=== PATIENT | female | born 1990 | race Caucasian/White ===

== ENCOUNTER 2019-04-07 04:26 | Inpatient (IN) | payer OTHER ==
[~2019-04-07] VITALS: Ht 157.5 cm; Wt 84.8 kg
[2019-04-07 06:21] VITALS: BP 123/86; PULSE 111; TEMP 98.8
[2019-04-07] MEDS ORDERED: SPRINTEC 35 MCG1 TAB PO (06:25)
[2019-04-07] MEDS ORDERED: FOLIC ACID 11 MG/TA1 PO (06:26)
[2019-04-07] MEDS ORDERED: LIALDA 1.2 GM1.2 GM PO (06:27)
[2019-04-07] MEDS ORDERED: PRENATAL MVI (06:28)
[2019-04-07] MEDS ORDERED: VITAMIN D32000 IU (06:29)
[2019-04-07] MEDS ORDERED: METHOTREXA2.5 MG/TAB PO (06:34)
[2019-04-07] MEDS ORDERED: HUMIRA40 MG/0.3 SQ (06:36)
[2019-04-07] MEDS ORDERED: ZOFRAN 4MG T4 MG/TAB PO (06:38)
[2019-04-07] MEDS ORDERED: PHENERGAN 25 TA25 MG PO (06:40)
--- NOTE | 2019-04-07 07:00 | NUR ---
Bedside shift report received from TAMIA Castrejon. PT in bed resting with eyes closed, denies needs, hat in toilet, will continue to monitor.
[2019-04-07 07:44] LABS: HEMATOCRIT 44.9 % (37.0-47.0); HEMOGLOBIN 14.9 g/dl (12.5-16.0); MEAN CELL VOLUME 89 fl (80.0-100.0); MEAN CORPUSCULAR HEMOGLOBIN 30 pg (27.0-31.0); MEAN CORPUSCULAR HGB CONC 33 g/dl (33.0-37.0); MEAN PLATELET VOLUME 9.7 fl (7.4-10.4); PLATELET COUNT 309 K/mm3 (130-400); RED BLOOD COUNT 5.02 M/mm3 (4.10-5.30); REDCELL DISTRIBUTION WIDTH-CV 15.1 % (11.5-14.5)
[2019-04-07 07:51] VITALS: BP 131/78; BP 135/71; PULSE 102; PULSE 71; TEMP 98.5; TEMP 99.4
[2019-04-07 07:56] LABS: ALBUMIN 3.8 gm/dL (3.5-5.0); BILIRUBIN,TOTAL 1.6 mg/dL (0.0-1.0); CALCIUM 8.7 mg/dL (8.4-10.2); CREATININE, serum 0.97 (0.52-1.25); POTASSIUM 3.7 mmol/L (3.4-5.0); TOTAL PROTEIN 6.9 gm/dL (6.4-8.2)
[2019-04-07] MEDS ORDERED: ENTOCORT EC3 MG PO (08:26)
[2019-04-07] MEDS ORDERED: MAXALT10 MG PO (08:27)
[2019-04-07] MEDS ORDERED: PREDNISONE 5MG5 MG PO (08:28)
--- NOTE | 2019-04-07 08:36 | NUR ---
Assessment charted. Pt resting in bed quietly, states pain is 4/10 to abdomen with cramping pain. IVF to GINA, INT to R a/c. REsting well, HR tachycardic, reviewed WBC count on labs. Pt denies needs, NPO until seen, will continue to monitor.
[2019-04-07 08:39] LABS: BAND 10 % (0-10); EOSINOPHIL 3 % (0-4); LYMPHOCYTE 14 % (20.0-51.0); NEUTROPHILS 64 % (42.0-75.2); PLATELET ESTIMATE NORMAL (NORMAL)
--- NOTE | 2019-04-07 10:05 | NUR ---
Pt c/o of cramping, slicing pain to abdomen rated at 4-5/10. PRN dilaudid given.
[2019-04-07 11:18] VITALS: BP 126/80; PULSE 98; TEMP 98.4
[2019-04-07] MEDS ORDERED: BENTYL 10MG10 MG/CAP PO (11:42)
--- NOTE | 2019-04-07 13:54 | NUR ---
Bomb Loader met with patient to complete initial intake and discuss discharge planning. Patient moved to [place] with her , Vladimir (ph#[phone]) yesterday. Patient states Vladimir is in the and they bought a home here in [place]. Patient plans to establish primary care and medications through [facility]. Patient is independent with ADLS and does not have DME. Patient does not have Advance Directives and is not interested in setting up at this time. Patient plans to return home upon discharge with Vladimir providing transportation.
[2019-04-07 16:38] VITALS: BP 114/75; PULSE 88; TEMP 98.2
--- NOTE | 2019-04-07 17:52 | NUR ---
Pt remains in bed, resting quietly, tolerating small amount of PO. PRN pain meds provided per request. IVF continues. Pt has had one stool that is positibe for Cdiff, now on contact precautions. Darien needs, will give bedsdie shift report to [facility] nurse who will resume care.
[2019-04-07 20:38] VITALS: BP 125/79; PULSE 83; TEMP 98.1
[2019-04-07 23:50] VITALS: BP 135/79; PULSE 82; TEMP 97.8
[2019-04-08 05:26] VITALS: BP 137/83; PULSE 87; TEMP 98.2
[2019-04-08 05:52] LABS: HEMATOCRIT 38.5 % (37.0-47.0); MEAN CELL VOLUME 89 fl (80.0-100.0); MEAN CORPUSCULAR HEMOGLOBIN 30 pg (27.0-31.0); MEAN CORPUSCULAR HGB CONC 34 g/dl (33.0-37.0); MEAN PLATELET VOLUME 9.9 fl (7.4-10.4); PLATELET COUNT 331 K/mm3 (130-400); RED BLOOD COUNT 4.34 M/mm3 (4.10-5.30); REDCELL DISTRIBUTION WIDTH-CV 14.5 % (11.5-14.5)
[2019-04-08 06:00] LABS: ALBUMIN 3.2 gm/dL (3.5-5.0); BILIRUBIN,TOTAL 0.7 mg/dL (0.0-1.0); CALCIUM 8.6 mg/dL (8.4-10.2); CREATININE, serum 0.67 (0.52-1.25); MAGNESIUM 2.1 mg/dL (1.6-2.3); TOTAL PROTEIN 6.1 gm/dL (6.4-8.2)
[2019-04-08 06:17] LABS: HEMOGLOBIN 12.9 g/dl (12.5-16.0)
[2019-04-08 07:28] VITALS: BP 115/74; PULSE 65; TEMP 98.1
[2019-04-08 11:26] VITALS: BP 119/79; PULSE 93; TEMP 98.4
[2019-04-08 13:10] LABS: BAND 6 % (0-10); LYMPHOCYTE 4 % (20.0-51.0); NEUTROPHILS 89 % (42.0-75.2)
[2019-04-08 13:11] LABS: PLATELET ESTIMATE NORMAL (NORMAL)
[2019-04-08 18:08] VITALS: BP 127/84; PULSE 87; TEMP 98.6
[2019-04-08 19:47] VITALS: BP 141/86; PULSE 87; TEMP 98.6
--- NOTE | 2019-04-08 20:30 | NUR ---
Assessment complete. Patient states 6/10 pain in abdomen. Prn pain medication given per pt request. Abdomen soft, but tender. Patient states she is having some nausea. Antiemetic given. Denies further needs at this time. Will continue to monitor.
--- NOTE | 2019-04-08 23:00 | NUR ---
Patient ambulating to BR independently. States, abd pain is 6/10. Prn IV pain medication given per request. RUE IV tender/leaking. IV removed. Pressure applied. Cath tip intact. Right FA IV flushed, patent. IVF infusing into right FA. Will continue to monitor.
[2019-04-08 23:24] VITALS: BP 140/96; PULSE 66
[2019-04-09] VITALS (7 sets, daily range): BP systolic 106–143; BP diastolic 68–93; PULSE 52–91; TEMP 97.9–98.9
--- NOTE | 2019-04-09 04:09 | NUR ---
Patient in bed, awake. States pain in ABD is 6/10. Prn pain medication given per pt request. Denies further needs at this time. Will continue to monitor.
[2019-04-09 06:12] LABS: HEMOGLOBIN 11.3 g/dl (12.5-16.0); MEAN CELL VOLUME 91 fl (80.0-100.0); MEAN CORPUSCULAR HEMOGLOBIN 29 pg (27.0-31.0); MEAN CORPUSCULAR HGB CONC 32 g/dl (33.0-37.0); MEAN PLATELET VOLUME 10.1 fl (7.4-10.4); PLATELET COUNT 275 K/mm3 (130-400); RED BLOOD COUNT 3.84 M/mm3 (4.10-5.30); REDCELL DISTRIBUTION WIDTH-CV 14.5 % (11.5-14.5)
[2019-04-09 06:25] LABS: HEMATOCRIT 35.1 % (37.0-47.0)
[2019-04-09 06:29] LABS: CALCIUM 8.4 mg/dL (8.4-10.2); CREATININE, serum 0.7 (0.52-1.25)
--- NOTE | 2019-04-09 09:13 | NUR ---
Pt stable this am and alert and oriented. Pt reports 3 episodes of diarrhea. Pt also states that breakfast bland diet may be too much too fast and requests diet to be changed to full liquid for lunch. Pt given phenergan to manage nausea after breakfast. Pt also given PRN [place] to manage pain. Pt IV patent with NS running per orders.Pt independent in the room and steady on her feet. Pt denies further needs at this time and call light in reach.
[2019-04-09 09:24] LABS: BAND 16 % (0-10); LYMPHOCYTE 2 % (20.0-51.0); NEUTROPHILS 80 % (42.0-75.2); PLATELET ESTIMATE NORMAL (NORMAL)
--- NOTE | 2019-04-09 15:27 | NUR ---
Pt alert and oriented and spouse sitting in bed with pt. Pt states pain down to 2/10 with [place] and Phenergan PRN. Pt remains on contact precautions for CDiff. Pt states that she has no nausea at this time. Pt has call light in reach and denies needs at this time.
--- NOTE | 2019-04-09 20:00 | NUR ---
Assessment complete. Pt laying in bed with at bedside. Alert and oriented. Denies pain during assessment. Denies nausea, vomiting, SOB, headahce. States to continue to have loose stools, without blood seen in stools. Pt states IV to LFA slightly painful and left arm/hand swollen. NS currently infusing. NS stopped. SOLOMON Castrejon, inspected IV site, flushed IV, pt states pain when flushing. IV to LFA discontinued. SOLOMON Castrejon started IV to RAC. Continued NS. Medications administered as ordered. Pt had own medications on hand, Humira, and self administered to left thigh. Contact precautions in place. Needs met at this time. Call light within reach.
--- NOTE | 2019-04-10 01:42 | NUR ---
Patient laying in bed with eyes open. presents with facial grimacing, grunting, and moaning. daughter at bedside. Respirations shallow and even. See EMAR for IV morphine administered. music playing at bedside. Telephone Supervisor deepakte per daughter request.
[2019-04-10 03:44] VITALS: BP 150/98; PULSE 51; TEMP 97.9
--- NOTE | 2019-04-10 05:52 | NUR ---
Pt slept throughout the night with at bedside. C/O cramping abdominal pain, rate 6/10, PRN [place] given as requested by pt, states relief. Medications given as ordered. Voices no concern at this time. Call light within reach.
[2019-04-10 05:58] LABS: BASO % 0.1 % (0.0-2.0); EOS % 0.1 % (0-4.0); GRAN # 13.8 (1.4-6.5); GRAN % 88.4 % (42.2-75.2); HEMOGLOBIN 11.8 g/dl (12.5-16.0); LYMPH # 1.2 (1.2-3.4); LYMPH % 7.7 % (20.0-51.0); MEAN CELL VOLUME 89 fl (80.0-100.0); MEAN CORPUSCULAR HEMOGLOBIN 30 pg (27.0-31.0); MEAN CORPUSCULAR HGB CONC 33 g/dl (33.0-37.0); MEAN PLATELET VOLUME 9.6 fl (7.4-10.4); MONO # 0.4 (0.1-0.6); MONO % 2.5 % (1.7-9.3); PLATELET COUNT 235 K/mm3 (130-400); RED BLOOD COUNT 3.97 M/mm3 (4.10-5.30); REDCELL DISTRIBUTION WIDTH-CV 14.5 % (11.5-14.5)
[2019-04-10 05:59] LABS: HEMATOCRIT 35.5 % (37.0-47.0)
[2019-04-10 06:05] LABS: CALCIUM 8.1 mg/dL (8.4-10.2); CREATININE, serum 0.74 (0.52-1.25); MAGNESIUM 1.9 mg/dL (1.6-2.3); PHOSPHOROUS 3.7 mg/dL (2.5-4.5)
[2019-04-10 07:43] VITALS: BP 155/91; PULSE 55; TEMP 98.1
--- NOTE | 2019-04-10 09:15 | NUR ---
Pt assessment completed and charted. Pt sitting in bed w/ at bedside. Pt denies pain, N/V, chest pain, dizziness, SOB. States she has some diarrhea, this nurse has not seen any BM. Pts breathing is even and unlabored, VSS, heart RRR, pulses strong bilaterally, good cap refill, BS X4. Pt has RAC IV w/ IVF at 75ml/hr running w/o complictions. No other concerns voiced at this time. Medications administered per MAR.
[2019-04-10 11:20] VITALS: BP 150/102; PULSE 58; TEMP 98.3
[2019-04-10] MEDS ORDERED: VANCOCIN H125 MG/CAP PO (11:22)
[2019-04-10] MEDS ORDERED: PREDNISONE10 MG PO (11:24)
[2019-04-10] MEDS ORDERED: NORCO 325 MG-51 TAB PO (11:32)
--- NOTE | 2019-04-10 15:00 | NUR ---
Pt discharge instructions discussed and reviewed w/ patient who verbalized understanding. All questions answered. RAC IV dc'd w/ catheter tip intact and no complications. Pt escorted out ambulatory w/o issue. No other concerns expressed.
== END 2019-04-10 14:45 | disposition home or self-care (01) | DRG 372 ==
LOC: MEDICAL 04:26
PROVIDERS: Hospitalist; Nurse Practitioner Family; Physician Assistant; ADMIT Internal Medicine
DX: A04.72 Enterocolitis due to Clostridium difficile, not specified as recurrent (principal); K51.918 Ulcerative colitis, unspecified with other complication; K51.20 Ulcerative (chronic) proctitis without complications; I73.00 Raynaud's syndrome without gangrene; M35.00 Sjogren syndrome, unspecified; Z86.010 Personal history of colon polyps; Z88.4 Allergy status to anesthetic agent; G43.909 Migraine, unspecified, not intractable, without status migrainosus; N80.9 Endometriosis, unspecified; E80.6 Other disorders of bilirubin metabolism
CPT/HCPCS: 99222-AI; 99231-AI; 99239; A4216; J0696; J1170; J2270; J2405; J2550; J2930; J7030

== ENCOUNTER 2019-08-10 13:00 | Outpatient (RCR) | payer OTHER ==
[2019-06-29 13:39] LABS: HEMATOCRIT 40.3 % (37.0-47.0); HEMOGLOBIN 13.5 g/dl (12.5-16.0); MEAN CELL VOLUME 91 fl (80.0-100.0); MEAN CORPUSCULAR HEMOGLOBIN 30 pg (27.0-31.0); MEAN CORPUSCULAR HGB CONC 34 g/dl (33.0-37.0); MEAN PLATELET VOLUME 9.3 fl (7.4-10.4); PLATELET COUNT 283 K/mm3 (130-400); RED BLOOD COUNT 4.44 M/mm3 (4.10-5.30); REDCELL DISTRIBUTION WIDTH-CV 12.7 % (11.5-14.5)
[2019-06-29 13:49] LABS: ALBUMIN 4.3 gm/dL (3.5-5.0); BILIRUBIN,TOTAL 0.6 mg/dL (0.0-1.0); CALCIUM 9.1 mg/dL (8.4-10.2); CREATININE, serum 0.89 (0.52-1.25); POTASSIUM 3.9 mmol/L (3.4-5.0); TOTAL PROTEIN 7.3 gm/dL (6.4-8.2)
[2019-06-29 15:31] VITALS: BP 115/86; PULSE 87; TEMP 98.7
[2019-06-29 15:45] VITALS: BP 114/77; PULSE 90; TEMP 98.7
[2019-06-29 16:15] VITALS: BP 116/72; PULSE 90; TEMP 98.7
[2019-06-29 16:45] VITALS: BP 115/78; PULSE 88; TEMP 98.7
[2019-06-29 17:15] VITALS: BP 117/81; PULSE 88; TEMP 98.7
[2019-06-29 17:45] VITALS: BP 126/79; PULSE 86; TEMP 98.7
[2019-07-13 13:59] LABS: HEMATOCRIT 41.1 % (37.0-47.0); MEAN CELL VOLUME 89 fl (80.0-100.0); MEAN CORPUSCULAR HEMOGLOBIN 30 pg (27.0-31.0); MEAN CORPUSCULAR HGB CONC 34 g/dl (33.0-37.0); MEAN PLATELET VOLUME 9.7 fl (7.4-10.4); PLATELET COUNT 319 K/mm3 (130-400); RED BLOOD COUNT 4.63 M/mm3 (4.10-5.30)
[2019-07-13 14:29] LABS: BILIRUBIN,TOTAL 0.4 mg/dL (0.0-1.0); CALCIUM 9.3 mg/dL (8.4-10.2); CREATININE, serum 0.89 (0.52-1.25); POTASSIUM 4.1 mmol/L (3.4-5.0)
[2019-07-13 14:45] VITALS: BP 126/82; PULSE 90; TEMP 98
[2019-07-13 15:15] VITALS: BP 103/71; PULSE 79; TEMP 98
[2019-07-13 16:15] VITALS: BP 115/82; PULSE 86; TEMP 98
[2019-07-13 16:40] VITALS: BP 113/72; PULSE 89; TEMP 98.6
[2019-07-13 17:10] VITALS: BP 113/72; PULSE 93; TEMP 98.7
[~2019-08-10] VITALS: Ht 157.5 cm; Wt 87.9 kg
[~2019-08-10 13:00] MED LIST: BENTYL 10MG10 MG/CAP PO; COZAAR 50MG50 MG/TAB PO; ENTOCORT EC3 MG PO; FOLIC ACID 11 MG/TA1 PO; HUMIRA40 MG/0.3 SQ; LIALDA 1.2 GM1.2 GM PO; MAXALT10 MG PO; METHOTREXA2.5 MG/TAB PO; NORCO 325 MG-51 TAB PO; PHENERGAN 25 TA25 MG PO; PREDNISONE 5MG5 MG PO; PREDNISONE10 MG PO; PRENATAL MVI; SPRINTEC 35 MCG1 TAB PO; VANCOCIN H125 MG/CAP PO; VITAMIN D32000 IU; ZOFRAN 4MG T4 MG/TAB PO
[2019-08-10 13:20] LABS: HEMATOCRIT 39.1 % (37.0-47.0); HEMOGLOBIN 12.9 g/dl (12.5-16.0); MEAN CELL VOLUME 86 fl (80.0-100.0); MEAN CORPUSCULAR HEMOGLOBIN 28 pg (27.0-31.0); MEAN CORPUSCULAR HGB CONC 33 g/dl (33.0-37.0); PLATELET COUNT 328 K/mm3 (130-400); RED BLOOD COUNT 4.54 M/mm3 (4.10-5.30); REDCELL DISTRIBUTION WIDTH-CV 11.7 % (11.5-14.5)
[2019-08-10 13:31] LABS: BILIRUBIN,TOTAL 0.4 mg/dL (0.0-1.0); CALCIUM 8.8 mg/dL (8.4-10.2); CREATININE, serum 0.76 (0.52-1.25); TOTAL PROTEIN 7.2 gm/dL (6.4-8.2)
[2019-08-10 14:25] VITALS: BP 132/84; PULSE 92; TEMP 97.6
[2019-08-10 15:00] VITALS: BP 109/71; PULSE 91; TEMP 98
[2019-08-10 15:30] VITALS: BP 102/69; PULSE 90; TEMP 97.9
[2019-08-10 16:00] VITALS: BP 107/68; PULSE 91; TEMP 98
[2019-08-10 16:32] VITALS: BP 122/78; PULSE 91; TEMP 98.4
== END 2019-08-10 16:33 | disposition home or self-care (01) ==
LOC: EUO 13:00
PROVIDERS: Internal Medicine Gastroenterology
DX: K51.90 Ulcerative colitis, unspecified, without complications (principal); Z79.899 Other long term (current) drug therapy
CPT/HCPCS: J1200; J2930; J7050; Q5103

== ENCOUNTER 2019-09-12 14:55 | Outpatient (CLI) | payer OTHER ==
--- NOTE | 2019-09-11 12:41 | NUR ---
LEFT MESSAGE IN REGARDS TO INFECTIOUS DISEASE SCREENING. ENCOURAGED RETURN PHONE CALL.
[~2019-09-12] VITALS: Ht 157.5 cm; Wt 99.3 kg
[2019-09-12 15:25] LABS: HEMATOCRIT 39.4 % (37.0-47.0); HEMOGLOBIN 13.2 g/dl (12.5-16.0); MEAN CELL VOLUME 85 fl (80.0-100.0); MEAN CORPUSCULAR HEMOGLOBIN 28 pg (27.0-31.0); MEAN CORPUSCULAR HGB CONC 34 g/dl (33.0-37.0); MEAN PLATELET VOLUME 8.8 fl (7.4-10.4); PLATELET COUNT 327 K/mm3 (130-400); RED BLOOD COUNT 4.64 M/mm3 (4.10-5.30); REDCELL DISTRIBUTION WIDTH-CV 12.7 % (11.5-14.5)
[2019-09-12 15:31] LABS: ALBUMIN 4.3 gm/dL (3.5-5.0); BILIRUBIN,TOTAL 0.3 mg/dL (0.0-1.0); CALCIUM 9.3 mg/dL (8.4-10.2); CREATININE, serum 0.76 (0.52-1.25); POTASSIUM 4.2 mmol/L (3.4-5.0); TOTAL PROTEIN 7.7 gm/dL (6.4-8.2)
[2019-09-12] MEDS ORDERED: TRANDATE 100MG100 MG PO (15:57)
[2019-09-12] MEDS ORDERED: TRANDATE 200MG200 MG PO (15:57)
[2019-09-12 16:30] VITALS: BP 103/71; PULSE 86; TEMP 98.3
[2019-09-12 17:00] VITALS: BP 111/78; PULSE 94; TEMP 98.3
[2019-09-12 17:30] VITALS: BP 110/72; BP 112/68; PULSE 87; PULSE 88; TEMP 98.3
[2019-09-12 18:00] VITALS: BP 111/70; PULSE 84; TEMP 98.3
[2019-09-12 18:28] VITALS: BP 116/82; PULSE 84; TEMP 98.3
== END 2019-09-12 18:28 | disposition home or self-care (01) ==
LOC: EUO 14:55
PROVIDERS: Internal Medicine Gastroenterology
DX: K51.90 Ulcerative colitis, unspecified, without complications (principal); Z79.899 Other long term (current) drug therapy
CPT/HCPCS: J7050; Q5103

== ENCOUNTER 2019-11-07 14:57 | Outpatient (CLI) | payer OTHER ==
[~2019-11-07] VITALS: Ht 157.5 cm; Wt 106.5 kg
[~2019-11-07 14:57] MED LIST changes: +TRANDATE 100MG100 MG PO; +TRANDATE 200MG200 MG PO; -VITAMIN D32000 IU; +VITAMIN D32000 IU PO
[2019-11-07] MEDS ORDERED: REGLAN 10MG10 MG/TAB PO (15:49)
[2019-11-07] MEDS ORDERED: FIORICET 325 MG1 TA1 PO (15:49)
[2019-11-07] MEDS ORDERED: MAG OX 250 PO (15:51)
[2019-11-07] MEDS ORDERED: RIBOFLAVIN100 MG PO (15:51)
[2019-11-07 15:52] VITALS: BP 116/78; PULSE 87; TEMP 97.8
[2019-11-07 15:54] LABS: HEMOGLOBIN 11.7 g/dl (12.5-16.0); MEAN CELL VOLUME 83 fl (80.0-100.0); MEAN CORPUSCULAR HEMOGLOBIN 28 pg (27.0-31.0); MEAN CORPUSCULAR HGB CONC 34 g/dl (33.0-37.0); MEAN PLATELET VOLUME 9.1 fl (7.4-10.4); PLATELET COUNT 251 K/mm3 (130-400); RED BLOOD COUNT 4.16 M/mm3 (4.10-5.30); REDCELL DISTRIBUTION WIDTH-CV 14.1 % (11.5-14.5)
[2019-11-07 15:55] LABS: ALBUMIN 3.5 gm/dL (3.5-5.0); BILIRUBIN,TOTAL 0.3 mg/dL (0.0-1.0); CALCIUM 8.9 mg/dL (8.4-10.2); CREATININE, serum 0.67 (0.52-1.25); POTASSIUM 3.5 mmol/L (3.4-5.0); TOTAL PROTEIN 6.6 gm/dL (6.4-8.2)
[2019-11-07 15:56] LABS: HEMATOCRIT 34.6 % (37.0-47.0)
[2019-11-07 17:00] VITALS: BP 104/68; PULSE 84; TEMP 98.7
[2019-11-07 17:30] VITALS: BP 120/70; PULSE 93
[2019-11-07 18:00] VITALS: BP 125/73; PULSE 93
[2019-11-07 18:30] VITALS: BP 108/67; PULSE 94
[2019-11-07 19:00] VITALS: BP 108/68; PULSE 96; TEMP 98.4
== END 2019-11-07 19:06 | disposition home or self-care (01) ==
LOC: EUO 14:57
PROVIDERS: Internal Medicine Gastroenterology
DX: K51.90 Ulcerative colitis, unspecified, without complications (principal); Z79.899 Other long term (current) drug therapy
CPT/HCPCS: J2920; J7050; Q5103

== ENCOUNTER 2020-01-02 14:53 | Outpatient (CLI) | payer OTHER ==
[~2020-01-02] VITALS: Ht 157.5 cm; Wt 107.4 kg
[~2020-01-02 14:53] MED LIST changes: +FIORICET 325 MG1 TA1 PO; +MAG OX 250 PO; +REGLAN 10MG10 MG/TAB PO; +RIBOFLAVIN100 MG PO
[2020-01-02 15:43] LABS: MEAN CELL VOLUME 87 fl (80.0-100.0); MEAN CORPUSCULAR HEMOGLOBIN 29 pg (27.0-31.0); MEAN CORPUSCULAR HGB CONC 34 g/dl (33.0-37.0); MEAN PLATELET VOLUME 8.9 fl (7.4-10.4); PLATELET COUNT 292 K/mm3 (130-400); RED BLOOD COUNT 3.76 M/mm3 (4.10-5.30); REDCELL DISTRIBUTION WIDTH-CV 13.9 % (11.5-14.5)
[2020-01-02] MEDS ORDERED: ENTOCORT EC3 MG PO (15:47)
[2020-01-02 15:52] LABS: ALBUMIN 3.4 gm/dL (3.5-5.0); BILIRUBIN,TOTAL 0.2 mg/dL (0.0-1.0); CALCIUM 8.5 mg/dL (8.4-10.2); CREATININE, serum 0.56 (0.52-1.25); POTASSIUM 3.7 mmol/L (3.4-5.0); TOTAL PROTEIN 6.9 gm/dL (6.4-8.2)
[2020-01-02 15:54] LABS: HEMATOCRIT 32.7 % (37.0-47.0)
[2020-01-02 16:10] VITALS: BP 116/75; PULSE 88; TEMP 98.7
[2020-01-02 16:40] VITALS: BP 102/69; PULSE 90
[2020-01-02 17:10] VITALS: BP 102/68; PULSE 90
[2020-01-02 17:40] VITALS: BP 118/83; PULSE 92
[2020-01-02 18:10] VITALS: BP 109/72; PULSE 90
[2020-01-02 18:35] VITALS: BP 109/77; PULSE 95; TEMP 98.4
== END 2020-01-02 20:22 | disposition home or self-care (01) ==
LOC: EUO 14:53
PROVIDERS: Internal Medicine Gastroenterology
DX: K51.90 Ulcerative colitis, unspecified, without complications (principal); Z79.899 Other long term (current) drug therapy
CPT/HCPCS: J2920; J7050; Q5103

== ENCOUNTER 2020-01-20 12:10 | Outpatient (CLI) | payer OTHER ==
[~2020-01-20] VITALS: Ht 160 cm; Wt 106.8 kg
--- NOTE | 2020-01-20 12:10 | NUR ---
PATIENT HERE TO LR 3 FOR CRAMPING. PATIENT CHANGED INTO GOWN, BELLY BAND ON, ON EFM, VITALS OBTAINED. ASSESALICIA NARANJO, PATIENT IS A PATIENT OF [facility]. 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 PATIENT HAS BEEN FEELING OFF FOR A FEW DAYS AND HER IS LEAVING FOR 1 MONTH AND JUST WANTED TO GET CHECKED OUT BEFORE HE LEFT. SOLOMON HAMPTON PREFORMED SVE. PATIENT DENIES INTERMITTENT CONTRACTIONS, BLEEDING OR LEAKING OF FLUID
[2020-01-20 12:19] VITALS: BP 136/85; PULSE 95; TEMP 98
[2020-01-20 12:30] VITALS: BP 136/85; PULSE 101; TEMP 98
[2020-01-20 13:00] VITALS: BP 118/61; PULSE 100
[2020-01-20 13:19] LABS: HEMOGLOBIN 10.6 g/dl (12.5-16.0); MEAN CELL VOLUME 87 fl (80.0-100.0); MEAN CORPUSCULAR HEMOGLOBIN 29 pg (27.0-31.0); MEAN CORPUSCULAR HGB CONC 33 g/dl (33.0-37.0); MEAN PLATELET VOLUME 9.3 fl (7.4-10.4); PLATELET COUNT 280 K/mm3 (130-400); RED BLOOD COUNT 3.71 M/mm3 (4.10-5.30); REDCELL DISTRIBUTION WIDTH-CV 13.2 % (11.5-14.5)
[2020-01-20 13:23] LABS: HEMATOCRIT 32.1 % (37.0-47.0)
[2020-01-20 13:30] VITALS: BP 117/67; PULSE 87
[2020-01-20 13:30] LABS: ALBUMIN 3.6 gm/dL (3.5-5.0); BILIRUBIN,TOTAL 0.3 mg/dL (0.0-1.0); CALCIUM 8.4 mg/dL (8.4-10.2); CREATININE, serum 0.56 (0.52-1.25); POTASSIUM 3.2 mmol/L (3.4-5.0)
[2020-01-20 13:39] LABS: COLLECTION METHOD CLEAN CATCH
[2020-01-20 13:46] LABS: MUCOUS Present /lpf; PH 6 (5-8); SQUAMOUS EPITHELIAL 0-2 /hpf; URINE APPEARANCE Clear; URINE BACTERIA None Seen /hpf; URINE BILIRUBIN Negative (NEGATIVE); URINE BLOOD Negative (NEGATIVE); URINE COLOR Yellow; URINE GLUCOSE Negative (NEGATIVE); URINE KETONE Negative (NEGATIVE); URINE LEUKOCYTE ESTERASE Negative (NEGATIVE); URINE NITRATE Negative (NEGATIVE); URINE PROTEIN(semi-quant) Negative (NEGATIVE); URINE RBC 0-2 /hpf; URINE UROBILINOGEN Negative (NEGATIVE); URINE WBC 0-2 /hpf
[2020-01-20 13:55] VITALS: BP 113/68; PULSE 104
== END 2020-01-20 14:00 | disposition home or self-care (01) ==
LOC: LDRO 12:10 → LDR 12:46 → LDRO 14:00
PROVIDERS: Obstetrics & Gynecology
DX: O26.892 Other specified pregnancy related conditions, second trimester (principal); R25.2 Cramp and spasm; Z3A.25 25 weeks gestation of pregnancy
CPT/HCPCS: OP

== ENCOUNTER 2020-02-27 11:38 | Outpatient (CLI) | payer OTHER ==
[~2020-02-27] VITALS: Ht 160 cm; Wt 107.6 kg
[2020-02-27 11:20] LABS: BASO % 0.2 % (0.0-2.0); EOS # 0.1 (0.0-0.7); EOS % 1.5 % (0-4.0); GRAN # 5.8 (1.4-6.5); GRAN % 62.6 % (42.2-75.2); LYMPH # 2.4 (1.2-3.4); LYMPH % 26.1 % (20.0-51.0); MEAN CELL VOLUME 84 fl (80.0-100.0); MEAN CORPUSCULAR HEMOGLOBIN 28 pg (27.0-31.0); MEAN CORPUSCULAR HGB CONC 33 g/dl (33.0-37.0); MEAN PLATELET VOLUME 8.9 fl (7.4-10.4); MONO # 0.8 (0.1-0.6); PLATELET COUNT 347 K/mm3 (130-400); RED BLOOD COUNT 3.93 M/mm3 (4.10-5.30); REDCELL DISTRIBUTION WIDTH-CV 13.5 % (11.5-14.5)
[2020-02-27 11:24] LABS: HEMATOCRIT 33.1 % (37.0-47.0)
[2020-02-27 11:38] LABS: ALBUMIN 3.9 gm/dL (3.5-5.0); BILIRUBIN,TOTAL 0.3 mg/dL (0.0-1.0); CALCIUM 8.5 mg/dL (8.4-10.2); CREATININE, serum 0.54 (0.52-1.25); POTASSIUM 3.4 mmol/L (3.4-5.0); TOTAL PROTEIN 7.4 gm/dL (6.4-8.2)
[2020-02-27 12:23] VITALS: BP 101/72; PULSE 105; TEMP 98.6
--- NOTE | 2020-02-27 12:25 | NUR ---
Patient denies any OB related complaints. Denies contractions, ROM or vaginal bleeding. Reports normal movement. Has next appt at [facility] next week. Reviewed labor precautions and kick counts. Denies questions.
[2020-02-27 12:53] VITALS: BP 104/70; PULSE 84
[2020-02-27 13:23] VITALS: BP 111/72; PULSE 80
[2020-02-27 13:53] VITALS: BP 118/78; PULSE 78
[2020-02-27 14:23] VITALS: BP 119/78; PULSE 78
[2020-02-27 14:53] VITALS: BP 107/74; PULSE 82; TEMP 98.9
== END 2020-02-27 15:34 | disposition home or self-care (01) ==
LOC: EUO 11:38
PROVIDERS: Internal Medicine Gastroenterology
DX: K51.90 Ulcerative colitis, unspecified, without complications (principal); Z79.899 Other long term (current) drug therapy
CPT/HCPCS: J7050; Q5103

== ENCOUNTER 2020-03-14 22:43 | Outpatient (CLI) | payer OTHER ==
[~2020-03-14] VITALS: Ht 160 cm; Wt 107.3 kg
--- NOTE | 2020-03-14 22:55 | NUR ---
225- patient ambulatory to the unit with by her side. orientated to room and changed into new gown. Patient reports GFM, no LOF, no bleeding or discharge and contractions every 6 minutes since about 1930 this evening. 2300- EFM and TOCO on and tracing, vitals taken, assessment completed. patient is a [facility] patient and has prenatals up to 24 wks with her. 2310- SVE fingertip/thick/high.
[2020-03-14] MEDS ORDERED: SINGULAIR 110 MG/TAB PO (23:26)
[2020-03-14] MEDS ORDERED: MILLIPRED DP5 MG PO (23:26)
[2020-03-14] MEDS ORDERED: ZYRTEC5 MG PO (23:26)
[2020-03-15 00:21] VITALS: BP 125/88; PULSE 89; TEMP 98.7
== END 2020-03-15 00:35 | disposition home or self-care (01) ==
LOC: LDRO 22:43
DX: O62.9 Abnormality of forces of labor, unspecified (principal); Z3A.33 33 weeks gestation of pregnancy

== ENCOUNTER 2020-03-23 23:13 | Outpatient (CLI) | payer OTHER ==
[~2020-03-23] VITALS: Ht 160 cm; Wt 107.3 kg
[~2020-03-23 23:13] MED LIST changes: +MILLIPRED DP5 MG PO; +SINGULAIR 110 MG/TAB PO; +ZYRTEC5 MG PO
--- NOTE | 2020-03-23 23:13 | NUR ---
2313 G1L0 34.3 WEEK GEST TO LR4 WITH C/O CONTRACTIONS FOR SEVERAL DAYS BUT MORE PAINFUL TONIGHT. DOCTORS AT [facility] BUT IS PLANNING ON DELIVERING IN [facility] AT [facility] DUE TO CHRONIC HTN AND ULCERATIVE CHOLITIS. CAME TO THIS HOSPITAL TONIGHT BECAUSE THEY DIDN'T WANT TO DRIVE ALL THE WAY TO [facility] [place] IF THEY DIDN'T NEED TO AND JUST WANTED TO BE CHECKED. EFM ON. ADM ASSESSMENT STARTED. DID NOT HAVE CONTRACTION FOR AT LEAST 20 MINUTES AFTER ARRIVAL ON UNIT. 2320 SVE DONE. CLOSES/THICK/HIGH. WANTS TO SIT STRAIGHT UP IN BED. FHT'S 130'S WITH NO ACCELS NOTED AT THIS TIME AND MODERATE VARIABILITY
[2020-03-23 23:20] VITALS: BP 145/97; PULSE 109; TEMP 97.8
--- NOTE | 2020-03-24 00:05 | NUR ---
0005 FHT'S 130 WITH GOOD ACCELS NOTED AND GOOD VARIABILITY. DR BUCKLEY NOTIFIED OF PT ADM COMPLAINT AND SVE. ORDER TO RECHECK CERVIX AND IS NO CHANGE MAY GO HOME. 0010 SVE WITH NO CHANGE. DISMISSAL INSTRUCTIONS GIVEN. 0030 HOME [facility] INSTRUCTIONS.
[2020-03-24 00:10] VITALS: BP 130/82; PULSE 96
[2020-03-24 00:38] VITALS: BP 145/97; PULSE 109; TEMP 97.9
== END 2020-03-24 00:30 | disposition home or self-care (01) ==
LOC: LDRO 23:13
DX: O62.9 Abnormality of forces of labor, unspecified (principal); Z3A.34 34 weeks gestation of pregnancy

== ENCOUNTER 2020-04-30 15:06 | Outpatient (CLI) | payer OTHER ==
[~2020-04-30 15:06] MED LIST changes: -PRENATAL MVI; +PRENATAL MVI PO; +ZYRTEC 10MG10 MG PO; -ZYRTEC5 MG PO
[2020-04-30 15:39] LABS: MEAN CELL VOLUME 82 fl (80.0-100.0); MEAN CORPUSCULAR HEMOGLOBIN 26 pg (27.0-31.0); MEAN CORPUSCULAR HGB CONC 32 g/dl (33.0-37.0); MEAN PLATELET VOLUME 8.7 fl (7.4-10.4); PLATELET COUNT 358 K/mm3 (130-400)
[2020-04-30 15:46] LABS: ALBUMIN 3.7 gm/dL (3.5-5.0); BILIRUBIN,TOTAL 0.4 mg/dL (0.0-1.0); CALCIUM 9.4 mg/dL (8.4-10.2); CREATININE, serum 0.72 (0.52-1.25); POTASSIUM 4.1 mmol/L (3.4-5.0); TOTAL PROTEIN 7.3 gm/dL (6.4-8.2)
[2020-04-30 15:56] LABS: HEMATOCRIT 34.4 % (37.0-47.0)
[2020-04-30 16:06] VITALS: BP 136/94; PULSE 91; TEMP 98.8
[2020-04-30 16:57] VITALS: BP 130/93; PULSE 99; TEMP 98.5
[2020-04-30 17:34] VITALS: BP 131/96; PULSE 97; TEMP 98.5
--- NOTE | 2020-04-30 17:43 | NUR ---
Report from Lisa Wu.
== END 2020-04-30 19:11 | disposition home or self-care (01) ==
LOC: EUO 15:06
PROVIDERS: Internal Medicine Gastroenterology
DX: K51.90 Ulcerative colitis, unspecified, without complications (principal); Z79.899 Other long term (current) drug therapy
CPT/HCPCS: J1200; J7050; Q5103

== ENCOUNTER 2020-06-21 09:39 | Day surgery (SDC) | payer OTHER ==
[~2020-06-21] VITALS: Ht 158.8 cm; Wt 102.4 kg
[~2020-06-21 09:39] MED LIST changes: +MASON NATURAL2000 IU PO; -VITAMIN D32000 IU PO
[2020-06-21 09:58] VITALS: BP 135/94; PULSE 82; TEMP 97.1
[2020-06-21] MEDS ORDERED: PREDNISONE20 MG PO (10:04)
[2020-06-21] MEDS ORDERED: INFLECTRA100 MG IV (10:05)
--- NOTE | 2020-06-21 10:15 | NUR ---
Camryn Perez CRNA was notified that the patient's last dose of Labetolol was yesterday (06/20) morning. He verbalized understanding and has no further orders at this time.
[2020-06-21 11:35] VITALS: BP 131/92; PULSE 67
--- NOTE | 2020-06-21 11:35 | NUR ---
PATIENT TO RECOVERY BAY 5 POST PROCEDURE VIA CART BY RN. AMBULATORY TO CHAIR WITH ASSIST OF ONE. MADE COMFORTABLE IN CHAIR. GIVEN WARM BLANKETS. GIVEN JUICE AND MUFFIN. TOLERATES WITHOUT DIFFICULTY. NO COMPLAINTS OF PAIN OR NAUSEA.
[2020-06-21 11:45] VITALS: BP 128/98; PULSE 71
[2020-06-21 12:00] VITALS: BP 133/100; PULSE 72
--- NOTE | 2020-06-21 12:00 | NUR ---
PATIENT RESTING IN CHAIR. NO COMPLAINTS. READY TO GO HOME. DR HAS BEEN AT BEDSIDE SPOKEN WITH PATIENT. OKAY TO GO HOME. WILL PREPARE FOR DISMISSAL
--- NOTE | 2020-06-21 12:12 | NUR ---
IV REMOVED FROM LEFT FOREARM. NO REDNESS OR SWELLING SECURED WITH NICHOLE
--- NOTE | 2020-06-21 12:18 | NUR ---
DISMISSAL INSTRUCTIONS VERBALLY REVIEWED WITH PATIENT. HARD COPIES GIVEN. PATIENT VERBALIZES UNDERSTANDING. DENIES QUESTIONS.
--- NOTE | 2020-06-21 12:22 | NUR ---
PATIENT ESCORTED TO FRONT ENTRANCE VIA WHEELCHAIR TO WAITING SILVERWARE BUFFING MACHINE OPERATOR FOR DISMISSAL
== END 2020-06-21 12:22 | disposition home or self-care (01) ==
LOC: SDCO 09:39
DX: K52.89 Other specified noninfective gastroenteritis and colitis (principal); Z88.8 Allergy status to other drugs, medicaments and biological substances; E66.9 Obesity, unspecified; G43.909 Migraine, unspecified, not intractable, without status migrainosus; J45.909 Unspecified asthma, uncomplicated; I10 Essential (primary) hypertension; K51.511 Left sided colitis with rectal bleeding; K92.1 Melena
CPT/HCPCS: J2704; J7030

== ENCOUNTER 2020-06-25 15:00 | Outpatient (CLI) | payer OTHER ==
[~2020-06-25] VITALS: Ht 160 cm; Wt 103.0 kg
[~2020-06-25 15:00] MED LIST changes: +INFLECTRA100 MG IV; +PREDNISONE20 MG PO
[2020-06-25 15:30] LABS: MEAN CELL VOLUME 80 fl (80.0-100.0); MEAN CORPUSCULAR HEMOGLOBIN 26 pg (27.0-31.0); MEAN CORPUSCULAR HGB CONC 33 g/dl (33.0-37.0); MEAN PLATELET VOLUME 8.8 fl (7.4-10.4); PLATELET COUNT 381 K/mm3 (130-400); RED BLOOD COUNT 4.62 M/mm3 (4.10-5.30); REDCELL DISTRIBUTION WIDTH-CV 13.7 % (11.5-14.5)
[2020-06-25 15:45] LABS: ALBUMIN 3.7 gm/dL (3.5-5.0); BILIRUBIN,TOTAL 0.6 mg/dL (0.0-1.0); CALCIUM 8.5 mg/dL (8.4-10.2); CREATININE, serum 0.88 (0.52-1.25)
[2020-06-25 15:51] LABS: HEMATOCRIT 36.8 % (37.0-47.0)
[2020-06-25 16:50] VITALS: BP 116/69; PULSE 57; TEMP 98.2
[2020-06-25 17:20] VITALS: BP 111/71; PULSE 56; TEMP 98.2
[2020-06-25 17:50] VITALS: BP 128/89; PULSE 57; TEMP 98.2
[2020-06-25 18:51] VITALS: BP 131/78; PULSE 62; TEMP 98.2
== END 2020-06-25 18:51 | disposition home or self-care (01) ==
LOC: EUO 15:00
PROVIDERS: Internal Medicine Gastroenterology
DX: K51.90 Ulcerative colitis, unspecified, without complications (principal); Z79.899 Other long term (current) drug therapy
CPT/HCPCS: J2930; J7050; Q5103

== ENCOUNTER 2020-08-30 14:54 | Outpatient (CLI) | payer OTHER ==
[~2020-08-30] VITALS: Ht 160 cm; Wt 106.3 kg
[2020-08-30 15:00] VITALS: BP 127/72; PULSE 63; TEMP 98.4
[2020-08-30 15:42] LABS: HEMATOCRIT 41.7 % (37.0-47.0); HEMOGLOBIN 13.5 g/dl (12.5-16.0); MEAN CELL VOLUME 83 fl (80.0-100.0); MEAN CORPUSCULAR HEMOGLOBIN 27 pg (27.0-31.0); MEAN CORPUSCULAR HGB CONC 32 g/dl (33.0-37.0); MEAN PLATELET VOLUME 8.9 fl (7.4-10.4); PLATELET COUNT 362 K/mm3 (130-400); RED BLOOD COUNT 5.05 M/mm3 (4.10-5.30); REDCELL DISTRIBUTION WIDTH-CV 14.8 % (11.5-14.5)
[2020-08-30 15:58] LABS: ALBUMIN 4.2 gm/dL (3.5-5.0); BILIRUBIN,TOTAL 0.5 mg/dL (0.0-1.0); CALCIUM 9.4 mg/dL (8.4-10.2); CREATININE, serum 0.88 (0.52-1.25); POTASSIUM 3.9 mmol/L (3.4-5.0); TOTAL PROTEIN 7.8 gm/dL (6.4-8.2)
== END 2020-08-30 17:55 | disposition home or self-care (01) ==
LOC: EUO 14:54
PROVIDERS: Internal Medicine Gastroenterology
DX: K51.90 Ulcerative colitis, unspecified, without complications (principal); Z79.899 Other long term (current) drug therapy
CPT/HCPCS: J2920; J3380; J7050

== ENCOUNTER 2020-09-12 08:33 | Outpatient (CLI) | payer OTHER ==
[~2020-09-12] VITALS: Ht 160 cm; Wt 101.0 kg
[2020-09-12 09:06] LABS: HEMOGLOBIN 13.2 g/dl (12.5-16.0); MEAN CELL VOLUME 79 fl (80.0-100.0); MEAN CORPUSCULAR HEMOGLOBIN 27 pg (27.0-31.0); MEAN CORPUSCULAR HGB CONC 34 g/dl (33.0-37.0); MEAN PLATELET VOLUME 8.9 fl (7.4-10.4); PLATELET COUNT 508 K/mm3 (130-400); RED BLOOD COUNT 4.92 M/mm3 (4.10-5.30); REDCELL DISTRIBUTION WIDTH-CV 14.6 % (11.5-14.5)
[2020-09-12 09:12] LABS: ALBUMIN 4.1 gm/dL (3.5-5.0); BILIRUBIN,TOTAL 0.1 mg/dL (0.0-1.0); CALCIUM 9.1 mg/dL (8.4-10.2); CREATININE, serum 1.12 (0.52-1.25); POTASSIUM 3.7 mmol/L (3.4-5.0); TOTAL PROTEIN 8.2 gm/dL (6.4-8.2)
[2020-09-12] MEDS ORDERED: BACTRIM DS 8001 TAB PO (09:12)
[2020-09-12] MEDS ORDERED: PREDNISONE 5MG5 MG PO (09:12)
[2020-09-12] MEDS ORDERED: ENTYVIO IV (10:00)
[2020-09-12 10:14] VITALS: BP 112/80; PULSE 77; TEMP 98.5
[2020-09-12 10:39] VITALS: BP 127/85; PULSE 91
[2020-09-12 10:54] VITALS: BP 119/84; PULSE 88
[2020-09-12 11:09] VITALS: BP 107/78; PULSE 88
== END 2020-09-12 11:16 | disposition home or self-care (01) ==
LOC: EUO 08:33
PROVIDERS: Internal Medicine Gastroenterology
DX: K51.90 Ulcerative colitis, unspecified, without complications (principal); Z79.899 Other long term (current) drug therapy
CPT/HCPCS: J2920; J3380; J7050

== ENCOUNTER 2020-10-11 13:00 | Outpatient (RCR) | payer OTHER ==
[2020-10-10 15:46] LABS: HEMOGLOBIN 11.2 g/dl (12.5-16.0); MEAN CELL VOLUME 85 fl (80.0-100.0); MEAN CORPUSCULAR HEMOGLOBIN 27 pg (27.0-31.0); MEAN CORPUSCULAR HGB CONC 31 g/dl (33.0-37.0); MEAN PLATELET VOLUME 8.8 fl (7.4-10.4); PLATELET COUNT 414 K/mm3 (130-400); RED BLOOD COUNT 4.22 M/mm3 (4.10-5.30); REDCELL DISTRIBUTION WIDTH-CV 14.1 % (11.5-14.5)
[2020-10-10 15:50] LABS: ALBUMIN 3.8 gm/dL (3.5-5.0); BILIRUBIN,TOTAL 0.2 mg/dL (0.0-1.0); CALCIUM 8.7 mg/dL (8.4-10.2); CREATININE, serum 0.83 (0.52-1.25); HEMATOCRIT 35.8 % (37.0-47.0); POTASSIUM 3.7 mmol/L (3.4-5.0); TOTAL PROTEIN 7.5 gm/dL (6.4-8.2)
[2020-10-10 16:00] VITALS: BP 137/89; PULSE 94; TEMP 98.4
--- NOTE | 2020-10-10 16:50 | NUR ---
Infusion was not administered today as prior authorization out of date. GI office was contacted and Suha from DR. Lee's office stated would place an urgent request for updated PA with chun today. Our plan is to contact pt as soon as we receive updated PA. Pt aware, and states is flexible and should be able to come back in with short notice.
[~2020-10-11] VITALS: Ht 160 cm; Wt 106.5 kg
[~2020-10-11 13:00] MED LIST changes: +BACTRIM DS 8001 TAB PO; +ENTYVIO IV
[2020-10-11 13:38] VITALS: BP 112/75; PULSE 95; TEMP 98.4
[2020-10-11 14:30] VITALS: BP 127/80; PULSE 81
== END 2020-10-11 14:40 | disposition home or self-care (01) ==
LOC: EUO 13:00
PROVIDERS: Internal Medicine Gastroenterology
DX: K51.90 Ulcerative colitis, unspecified, without complications (principal); Z79.899 Other long term (current) drug therapy
CPT/HCPCS: J2920; J3380; J7050

== ENCOUNTER 2020-12-06 14:55 | Outpatient (CLI) | payer OTHER ==
[~2020-12-06] VITALS: Ht 160 cm; Wt 108.0 kg
[2020-12-06 15:25] LABS: BASO % 0.3 % (0.0-2.0); EOS % 0.2 % (0-4.0); GRAN # 11.6 (1.4-6.5); GRAN % 85.9 % (42.2-75.2); HEMATOCRIT 38.9 % (37.0-47.0); HEMOGLOBIN 12.3 g/dl (12.5-16.0); LYMPH # 1.7 (1.2-3.4); LYMPH % 12.2 % (20.0-51.0); MEAN CELL VOLUME 83 fl (80.0-100.0); MEAN CORPUSCULAR HEMOGLOBIN 26 pg (27.0-31.0); MEAN CORPUSCULAR HGB CONC 32 g/dl (33.0-37.0); MEAN PLATELET VOLUME 9.2 fl (7.4-10.4); MONO # 0.1 (0.1-0.6); PLATELET COUNT 430 K/mm3 (130-400); RED BLOOD COUNT 4.71 M/mm3 (4.10-5.30); REDCELL DISTRIBUTION WIDTH-CV 13.6 % (11.5-14.5)
[2020-12-06 15:32] LABS: ALBUMIN 4.2 gm/dL (3.5-5.0); BILIRUBIN,TOTAL 0.3 mg/dL (0.0-1.0); CALCIUM 9.4 mg/dL (8.4-10.2); CREATININE, serum 0.96 (0.52-1.25); TOTAL PROTEIN 7.9 gm/dL (6.4-8.2)
[2020-12-06 16:31] VITALS: BP 124/82; PULSE 86; TEMP 98.7
[2020-12-06] MEDS ORDERED: PROBIOTIC BLEN1 EACH PO (16:42)
[2020-12-06 16:50] VITALS: BP 130/82; PULSE 94
[2020-12-06 17:00] VITALS: BP 132/79; PULSE 85
[2020-12-06 17:10] VITALS: BP 127/89; PULSE 94
--- NOTE | 2020-12-06 17:34 | NUR ---
INT DC'd with catheter intact. Next appt set. She ambulates from dept with steady gait.
== END 2020-12-06 17:35 | disposition home or self-care (01) ==
LOC: EUO 14:55
PROVIDERS: Internal Medicine Gastroenterology
DX: K51.90 Ulcerative colitis, unspecified, without complications (principal); Z79.899 Other long term (current) drug therapy
CPT/HCPCS: J2920; J3380; J7050

== ENCOUNTER 2021-01-31 14:51 | Outpatient (CLI) | payer OTHER ==
[~2021-01-31 14:51] MED LIST changes: +PROBIOTIC BLEN1 EACH PO
[2021-01-31 15:52] LABS: BASO # 0.1 (0.0-0.2); BASO % 0.7 % (0.0-2.0); EOS # 0.3 (0.0-0.7); EOS % 2.6 % (0-4.0); GRAN # 7.1 (1.4-6.5); GRAN % 73.8 % (42.2-75.2); HEMATOCRIT 40.4 % (37.0-47.0); HEMOGLOBIN 12.7 g/dl (12.5-16.0); LYMPH # 1.7 (1.2-3.4); LYMPH % 17.4 % (20.0-51.0); MEAN CELL VOLUME 81 fl (80.0-100.0); MEAN CORPUSCULAR HEMOGLOBIN 26 pg (27.0-31.0); MEAN CORPUSCULAR HGB CONC 31 g/dl (33.0-37.0); MONO # 0.5 (0.1-0.6); MONO % 5.3 % (1.7-9.3); PLATELET COUNT 505 K/mm3 (130-400); RED BLOOD COUNT 4.97 M/mm3 (4.10-5.30); REDCELL DISTRIBUTION WIDTH-CV 15.7 % (11.5-14.5)
[2021-01-31 15:58] VITALS: BP 116/80; PULSE 89; TEMP 98.5
[2021-01-31 16:01] LABS: ALBUMIN 4.5 gm/dL (3.5-5.0); BILIRUBIN,TOTAL 0.4 mg/dL (0.0-1.0); CALCIUM 9.6 mg/dL (8.4-10.2); CREATININE, serum 1.23 (0.52-1.25); POTASSIUM 4.8 mmol/L (3.4-5.0); TOTAL PROTEIN 8.4 gm/dL (6.4-8.2)
[2021-01-31] MEDS ORDERED: ALDACTONE50 MG PO (16:46)
--- NOTE | 2021-01-31 19:06 | NUR ---
No complaints from [facility] infusion . INT discontinued intact
== END 2021-01-31 19:07 | disposition home or self-care (01) ==
LOC: EUO 14:51
PROVIDERS: Internal Medicine Gastroenterology
DX: K51.90 Ulcerative colitis, unspecified, without complications (principal)
CPT/HCPCS: J1200; J2920; J3358; J3380

== ENCOUNTER 2021-06-26 11:17 | Emergency (ER) | payer OTHER ==
[~2021-06-26] VITALS: Ht 157.5 cm; Wt 99.1 kg
[~2021-06-26 11:17] MED LIST changes: +ALDACTONE50 MG PO
[2021-06-26 11:25] VITALS: TEMP 97.5
[2021-06-26 12:05] LABS: BASO % 0.5 % (0.0-2.0); EOS # 0.1 K/mm3 (0.0-0.7); EOS % 0.8 % (0.0-4.0); GRAN # 5.3 K/mm3 (1.4-6.5); GRAN % 63.7 % (42.2-75.2); HEMATOCRIT 42.9 % (37.0-47.0); HEMOGLOBIN 14.3 g/dl (12.5-16.0); LYMPH # 2.5 K/mm3 (1.2-3.4); LYMPH % 30.2 % (20.0-51.0); MEAN CELL VOLUME 85 fl (80.0-100.0); MEAN CORPUSCULAR HEMOGLOBIN 28 pg (27-31); MEAN CORPUSCULAR HGB CONC 33 g/dl (33.0-37.0); MEAN PLATELET VOLUME 9.7 fl (7.4-10.4); MONO # 0.4 K/mm3 (0.1-0.6); MONO % 4.6 % (1.7-9.3); PLATELET COUNT 346 K/mm3 (130-400); RED BLOOD COUNT 5.03 M/mm3 (4.10-5.30); REDCELL DISTRIBUTION WIDTH-CV 12.8 % (11.5-14.5)
[2021-06-26 12:16] LABS: COLLECTION METHOD CLEAN CATCH
[2021-06-26 12:26] LABS: MUCOUS Present (NOT PRESENT); PH 6 (5-8); SQUAMOUS EPITHELIAL 0-2 /hpf (0-10); URINE APPEARANCE Clear (CLEAR/HAZY); URINE BACTERIA None Seen /hpf (NONE SEEN); URINE BILIRUBIN Negative (NEGATIVE); URINE BLOOD Negative (NEGATIVE); URINE COLOR Yellow (YELLOW); URINE GLUCOSE Negative (NEGATIVE); URINE KETONE 1+ (NEGATIVE); URINE LEUKOCYTE ESTERASE Negative (NEGATIVE); URINE NITRATE Negative (NEGATIVE); URINE PROTEIN(semi-quant) Negative (NEGATIVE); URINE RBC 0-2 /hpf (0-2); URINE UROBILINOGEN Negative (NEGATIVE)
[2021-06-26 12:39] LABS: BILIRUBIN,TOTAL 0.5 mg/dL (0.2-1.2); CALCIUM 8.5 mg/dL (8.4-10.2); CREATININE, serum 0.74 mg/dL (0.57-1.11); MAGNESIUM 1.7 mg/dL (1.6-2.6); POTASSIUM 4.3 mmol/L (3.5-4.5); TOTAL PROTEIN 7.6 gm/dL (6.2-8.1)
[2021-06-26 13:51] VITALS: BP 125/75; PULSE 72
== END 2021-06-26 13:52 | disposition home or self-care (01) ==
LOC: COL.ER 11:17
PROVIDERS: Emergency Medicine
DX: O21.9 Vomiting of pregnancy, unspecified (principal); Z20.822 Contact with and (suspected) exposure to COVID-19; Z3A.10 10 weeks gestation of pregnancy
CPT/HCPCS: J1200; J2765; J7030

== ENCOUNTER 2021-07-02 22:41 | Emergency (ER) | payer OTHER ==
[~2021-07-02] VITALS: Ht 157.5 cm; Wt 99.1 kg
[2021-07-02 22:46] VITALS: TEMP 98
[2021-07-03 00:50] VITALS: BP 136/91; PULSE 82
== END 2021-07-03 00:50 | disposition home or self-care (01) ==
LOC: COL.ER 22:41
DX: R05.9 Cough, unspecified (principal)
CPT/HCPCS: J2405; J7030